=== PATIENT | male | born 1945 | race Caucasian/White ===

== ENCOUNTER 2019-12-13 13:04 | Inpatient (IN) ==
[2019-12-13] MEDS ORDERED: VECURONIUM 10 MG VIAL IV ONE (13:20)
[2019-12-13] MEDS ORDERED: SODIUM CHLORIDE 0.9% 1,000 ML IV STA (13:40)
[2019-12-13] MEDS ORDERED: NOREPINEPHRINE 4 MG/4 ML VIAL IV ONE (13:46)
[2019-12-13 13:50] LABS: Basophils % 0.4 % (0.0-0.8); Eosinophils # 0.2 10*3/uL (0.0-0.87); Eosinophils % 2.1 % (0.00-10.9); Hematocrit 36.3 VOL% (42.0-52.0); Hemoglobin 11.3 GM/DL (14.0-18.0); Immature Granulocytes % 4.1 %; Immature Granulocytes Absolute 0.43 #; Lymphocytes # 4.1 10*3/uL (1.4-4.0); Lymphocytes % 39.1 % (21.2-54.2); Mean Corpuscular HGB Conc 31.1 GM/DL (32-36); Mean Corpuscular Volume 97.3 FL (87-102); Mean Platelet Volume 10.2 FL (9.6-12.0); Monocytes % 9.2 % (1.7-12.7); NRBC # 0.02 10*3/uL; Neutrophils % 45.1 % (38.7-73.9); Platelet Count 380 T/CUMM (130-400); Red Blood Count 3.73 MC/CUMM (3.8-5.5); Red Cell Distribution Width 14.3 % (9.3-17.3); White Blood Count 10.5 T/CUMM (4-12)
[2019-12-13] MEDS ORDERED: ATROPINE 1 MG/10 ML SYRINGE IV STA (13:55)
[2019-12-13] MEDS ORDERED: ATROPINE 1 MG/10 ML SYRINGE ONE (13:56)
[2019-12-13 14:06] LABS: Alanine Aminotransferase 25 U/L (16-61); Alkaline Phosphatase 69 U/L (45-117); Aspartate Amino Transferase 26 U/L (0-37); Bilirubin,Total < 0.39 MG/DL (0.2-1.0); Blood Urea Nitrogen 20 MG/DL (7-18); Calcium 8.6 MG/DL (8.5-10.1); Estimated Glom Filtration Rate 117 ML/MIN; Glucose 148 MG/DL (74-106); Osmolality,Calculated 269.5 MOS/KG (273-304); Total Protein 6.9 G/DL (6.4-8.3)
[2019-12-13] MEDS ORDERED: PIPERACILLIN/TAZOBACTAM 3,375 MG VIAL IV ONE (14:26)
[2019-12-13] MEDS ORDERED: SODIUM CHLORIDE 0.9% 100 ML IV ONE (14:27)
[2019-12-13] MEDS ORDERED: PIPERACILLIN/TAZOBACTAM 3,375 MG in SODIUM CHLORIDE 0.9% 100 ML IV STA (14:29)
[2019-12-13 14:35] LABS: ABG Base Excess -1.5 MMOL/L (-2.5-2.5); ABG HCO3 23.2 MMOL/L (20-26); ABG PH 7.238 (7.35-7.45); ABG TCO2 25.1 MMOL/L (23-27); Allen Test Positive; Pt O2 Delivery Device Ventilator
[2019-12-13] MEDS: NOREPINEPHRINE 8 MG in SODIUM CHLORIDE 0.9% 242 ML IV PRN ×3 (14:55→22:08)
[2019-12-13] MEDS ORDERED: MORPHINE 4 MG/1 ML VIAL IV PRN ×2 (15:23→17:37)
[2019-12-13] MEDS ORDERED: ENOXAPARIN 40 MG/0.4 ML SYRINGE SUBCUT SCH (15:23)
[2019-12-13] MEDS ORDERED: ONDANSETRON 4 MG/2 ML VIAL IV PRN (15:23)
[2019-12-13] MEDS ORDERED: MORPHINE 10 MG/1 ML VIAL IV ONE (15:54)
[2019-12-13] MEDS ORDERED: SODIUM CHLORIDE 0.9% 1,000 ML IV ONE ×2 (15:57→21:40)
[2019-12-13] MEDS ORDERED: ATROPINE 1 MG/10 ML SYRINGE IV ONE (16:07)
[2019-12-13 17:05] LABS: ABG Base Excess -5.7 MMOL/L (-2.5-2.5); ABG HCO3 19.6 MMOL/L (20-26); ABG Oxygen Saturation 86.1 % (95-100); ABG PCO2 66.8 MM HG (35-48); ABG PO2 65.3 MM HG (80-95); ABG TCO2 22.7 MMOL/L (23-27); Allen Test Positive; Pt O2 Delivery Device Ventilator
[2019-12-13 17:08] LABS: ABG PH 7.168 (7.35-7.45)
[2019-12-13] MEDS: SODIUM CHLORIDE 0.9% 1,000 ML IV SCH (17:30)
[2019-12-13] MEDS: MEROPENEM 500 MG in SODIUM CHLORIDE 0.9% 100 ML IV SCH (18:15)
[2019-12-13] MEDS: VALPROIC ACID INJ 750 MG in SODIUM CHLORIDE 0.9% 100 ML IV SCH (18:21)
[2019-12-14] MEDS: MEROPENEM 500 MG in SODIUM CHLORIDE 0.9% 100 ML IV SCH ×4 (00:39→16:46)
[2019-12-14] MEDS: VALPROIC ACID INJ 750 MG in SODIUM CHLORIDE 0.9% 100 ML IV SCH ×3 (01:28→16:45)
[2019-12-14] MEDS: SODIUM CHLORIDE 0.9% 1,000 ML IV SCH ×3 (01:41→16:44)
[2019-12-14 02:48] LABS: Basophils % 0.1 % (0.0-0.8); Hematocrit 30.5 VOL% (42.0-52.0); Hemoglobin 9.7 GM/DL (14.0-18.0); Immature Granulocytes % 0.7 %; Immature Granulocytes Absolute 0.06 #; Lymphocytes % 11.3 % (21.2-54.2); Mean Corpuscular HGB Conc 31.8 GM/DL (32-36); Mean Corpuscular Volume 94.4 FL (87-102); Mean Platelet Volume 10.1 FL (9.6-12.0); Monocytes % 12.8 % (1.7-12.7); NRBC # 0.03 10*3/uL; Neutrophils % 75.1 % (38.7-73.9); Platelet Count 308 T/CUMM (130-400); Red Blood Count 3.23 MC/CUMM (3.8-5.5); Red Cell Distribution Width 14.5 % (9.3-17.3); White Blood Count 8.5 T/CUMM (4-12)
[2019-12-14 03:08] LABS: Calcium 7.7 MG/DL (8.5-10.1)
[2019-12-14 04:08] LABS: ABG Base Excess -2.2 MMOL/L (-2.5-2.5); ABG HCO3 22.6 MMOL/L (20-26); ABG Oxygen Saturation 99.6 % (95-100); ABG PCO2 33.1 MM HG (35-48); ABG PH 7.422 (7.35-7.45); ABG TCO2 19.7 MMOL/L (23-27); Allen Test Positive; Pt O2 Delivery Device Ventilator
[2019-12-14] MEDS ORDERED: LEVOFLOXACIN INJ 750 MG in PREMIX 1 EACH IV SCH (09:00)
[2019-12-14] MEDS: LEVOFLOXACIN INJ 750 MG in PREMIX 1 EACH IV SCH (09:04)
[2019-12-14] MEDS: NOREPINEPHRINE 8 MG in SODIUM CHLORIDE 0.9% 242 ML IV PRN (09:13)
[2019-12-14] MEDS ORDERED: MAGNESIUM SULF RIDER 2 GM in PREMIX 1 EACH IV ONE (10:38)
[2019-12-14 13:18] LABS: Apearance,Urine Slightly Hazy (Clear); Bilirubin,Urine Negative (Negative); Blood, Urine Moderate mg/dL (Negative); Glucose,Urine (UA) Negative (Negative); Hyaline Casts,Urine 1 /LPF (0-3); Ketones,Urine Negative (Negative); Mucus,Urine Occasional /LPF (Occasional); Nitrite,Urine Negative (Negative); Protein,Urine Negative; RBC,Urine 37 /HPF (0-4); Squamous Epithelial Cell,Urine Occasional /HPF (0-10); Urine Color Yellow (Yellow); Urine Specific Gravity 1.018 (1.001-1.035); WBC,Urine 48 /HPF (0-6)
[2019-12-15] MEDS: VALPROIC ACID INJ 750 MG in SODIUM CHLORIDE 0.9% 100 ML IV SCH ×4 (00:32→23:14)
[2019-12-15] MEDS: MEROPENEM 500 MG in SODIUM CHLORIDE 0.9% 100 ML IV SCH ×5 (00:32→23:14)
[2019-12-15 03:14] LABS: ABG Base Excess 0.7 MMOL/L (-2.5-2.5); ABG Oxygen Saturation 99.4 % (95-100); ABG PCO2 33.7 MM HG (35-48); ABG PH 7.463 (7.35-7.45); ABG TCO2 22.5 MMOL/L (23-27); Allen Test Positive; Pt O2 Delivery Device Ventilator
[2019-12-15 05:17] LABS: Calcium 7.7 MG/DL (8.5-10.1); Osmolality,Calculated 278.7 MOS/KG (273-304)
[2019-12-15] MEDS: SODIUM CHLORIDE 0.9% 1,000 ML IV SCH ×3 (07:20→17:04)
[2019-12-15 08:26] LABS: Eosinophils % 0.3 % (0.00-10.9); Hematocrit 26.7 VOL% (42.0-52.0); Hemoglobin 8.2 GM/DL (14.0-18.0); Immature Granulocytes % 0.6 %; Immature Granulocytes Absolute 0.04 #; Lymphocytes # 1.5 10*3/uL (1.4-4.0); Lymphocytes % 20.4 % (21.2-54.2); Mean Corpuscular HGB Conc 30.7 GM/DL (32-36); Mean Corpuscular Volume 97.1 FL (87-102); Monocytes % 9.1 % (1.7-12.7); Neutrophils % 69.6 % (38.7-73.9); Red Blood Count 2.75 MC/CUMM (3.8-5.5); Red Cell Distribution Width 15.2 % (9.3-17.3); White Blood Count 7.1 T/CUMM (4-12)
[2019-12-15 08:33] LABS: Platelet Count 176 T/CUMM (130-400)
[2019-12-15] MEDS: LEVOFLOXACIN INJ 750 MG in PREMIX 1 EACH IV SCH (09:40)
[2019-12-15] MEDS ORDERED: GLUCAGON 1 MG VIAL IM PRN (13:13)
[2019-12-15] MEDS ORDERED: DEXTROSE 10% 250 ML BAG IV PRN (13:13)
[2019-12-15 16:29] LABS: Allen Test Positive; Pt O2 Delivery Device Ventilator
[2019-12-15 16:30] LABS: ABG HCO3 24.4 MMOL/L (20-26); ABG Oxygen Saturation 96.1 % (95-100); ABG PH 7.433 (7.35-7.45); ABG PO2 76.6 MM HG (80-95); ABG TCO2 22.5 MMOL/L (23-27)
[2019-12-16 03:24] LABS: ABG Base Excess 0.2 MMOL/L (-2.5-2.5); ABG HCO3 24.6 MMOL/L (20-26); ABG Oxygen Saturation 99.2 % (95-100); ABG PCO2 36.6 MM HG (35-48); ABG TCO2 22.8 MMOL/L (23-27); Allen Test Positive; Pt O2 Delivery Device Ventilator
[2019-12-16] MEDS: MEROPENEM 500 MG in SODIUM CHLORIDE 0.9% 100 ML IV SCH ×4 (04:33→23:57)
[2019-12-16 06:14] LABS: Calcium 7.9 MG/DL (8.5-10.1); Osmolality,Calculated 281.4 MOS/KG (273-304)
[2019-12-16 06:35] LABS: Basophils % 0.2 % (0.0-0.8); Eosinophils # 0.1 10*3/uL (0.0-0.87); Eosinophils % 1.1 % (0.00-10.9); Hematocrit 24.1 VOL% (42.0-52.0); Immature Granulocytes % 0.5 %; Immature Granulocytes Absolute 0.03 #; Lymphocytes # 1.4 10*3/uL (1.4-4.0); Mean Corpuscular HGB Conc 30.7 GM/DL (32-36); Mean Corpuscular Volume 97.6 FL (87-102); Mean Platelet Volume 10.6 FL (9.6-12.0); Neutrophils % 64.2 % (38.7-73.9); Platelet Count 141 T/CUMM (130-400); Red Blood Count 2.47 MC/CUMM (3.8-5.5); Red Cell Distribution Width 15.2 % (9.3-17.3); White Blood Count 5.7 T/CUMM (4-12)
[2019-12-16 06:37] LABS: Hemoglobin 7.4 GM/DL (14.0-18.0)
[2019-12-16] MEDS: SODIUM CHLORIDE 0.9% 1,000 ML IV SCH ×2 (08:00→23:57)
[2019-12-16] MEDS: VALPROIC ACID INJ 750 MG in SODIUM CHLORIDE 0.9% 100 ML IV SCH ×2 (08:07→16:23)
[2019-12-16] MEDS: LEVOFLOXACIN INJ 750 MG in PREMIX 1 EACH IV SCH (08:09)
[2019-12-16] MEDS: POTASSIUM CHLORIDE 20 MEQ/15 ML UDCUP PER TUBE SCH ×3 (10:09→17:21)
[2019-12-16] MEDS: VANCOMYCIN INJ 1,750 MG in SODIUM CHLORIDE 0.9% 500 ML IV SCH (10:16)
[2019-12-16] MEDS: ALBUTEROL 2.5 MG/3 ML NEB RESP TX PRN ×2 (11:41→16:42)
[2019-12-16] MEDS: fentaNYL INJ 1,250 MCG in SODIUM CHLORIDE 0.9% 225 ML IV PRN ×2 (12:57→20:51)
[2019-12-17] MEDS: VANCOMYCIN INJ 1,750 MG in SODIUM CHLORIDE 0.9% 500 ML IV SCH (00:30)
[2019-12-17] MEDS: VALPROIC ACID INJ 750 MG in SODIUM CHLORIDE 0.9% 100 ML IV SCH ×3 (01:27→16:06)
[2019-12-17] MEDS: fentaNYL INJ 1,250 MCG in SODIUM CHLORIDE 0.9% 225 ML IV PRN (01:27)
[2019-12-17] MEDS ORDERED: MIDAZOLAM 100 MG in SODIUM CHLORIDE 0.9% 80 ML IV PRN (03:09)
[2019-12-17 03:33] LABS: ABG HCO3 24.3 MMOL/L (20-26); ABG Oxygen Saturation 96.8 % (95-100); ABG PCO2 55.7 MM HG (35-48); ABG PH 7.257 (7.35-7.45); ABG PO2 100.4 MM HG (80-95); Allen Test Positive; Pt O2 Delivery Device Ventilator
[2019-12-17 04:18] LABS: Basophils % 0.3 % (0.0-0.8); Eosinophils # 0.1 10*3/uL (0.0-0.87); Hematocrit 27.8 VOL% (42.0-52.0); Hemoglobin 8.4 GM/DL (14.0-18.0); Immature Granulocytes % 1.5 %; Lymphocytes % 14.3 % (21.2-54.2); Mean Corpuscular HGB Conc 30.2 GM/DL (32-36); Mean Corpuscular Volume 98.9 FL (87-102); Mean Platelet Volume 10.2 FL (9.6-12.0); Monocytes % 9.7 % (1.7-12.7); Neutrophils % 73.2 % (38.7-73.9); Platelet Count 175 T/CUMM (130-400); Red Blood Count 2.81 MC/CUMM (3.8-5.5); Red Cell Distribution Width 14.8 % (9.3-17.3); White Blood Count 6.8 T/CUMM (4-12)
[2019-12-17 04:50] LABS: Calcium 8.2 MG/DL (8.5-10.1); Osmolality,Calculated 282.3 MOS/KG (273-304)
[2019-12-17] MEDS: MEROPENEM 500 MG in SODIUM CHLORIDE 0.9% 100 ML IV SCH (05:45)
[2019-12-17] MEDS: SODIUM CHLORIDE 0.9% 1,000 ML IV SCH (06:28)
[2019-12-17] MEDS: LEVOFLOXACIN INJ 750 MG in PREMIX 1 EACH IV SCH (08:39)
[2019-12-17] MEDS ORDERED: FUROSEMIDE 20 MG/2 ML VIAL IV ONE (10:01)
[2019-12-17] MEDS: methylPREDNISolone SOD SUC 40 MG/1 ML VIAL IV SCH ×2 (10:24→16:09)
[2019-12-17] MEDS: metroNIDAZOLE INJ 500 MG in PREMIX 1 EACH IV SCH ×3 (10:24→21:21)
[2019-12-17] MEDS: cefTRIAXone 1,000 MG in SYRINGE 1 EACH IV SCH (10:27)
[2019-12-17] MEDS: LACTULOSE 20 GM/30 ML UDCUP PER TUBE SCH ×3 (10:28→21:21)
[2019-12-17] MEDS: DEXMEDETOMIDINE 200 MCG in SODIUM CHLORIDE 0.9% 48 ML IV PRN ×2 (11:53→19:14)
[2019-12-17] MEDS ORDERED: SODIUM PHOSPHATE ENEMA 133 ML BOTTLE RECTAL ONE (15:34)
[2019-12-17] MEDS ORDERED: MAGNESIUM CITRATE 300 ML BOTTLE PO ONE (15:34)
[2019-12-17] MEDS: FUROSEMIDE 20 MG/2 ML VIAL IV SCH (16:06)
[2019-12-17] MEDS: INSULIN REGULAR 100 UNIT/ML SUBCUT SCH (17:31)
[2019-12-17] MEDS: ALBUTEROL/IPRATROPIUM 3 ML NEB RESP TX SCH ×2 (19:54→23:50)
[2019-12-17] MEDS: RANITIDINE 150 MG TABLET PO SCH (21:21)
[2019-12-18] MEDS: INSULIN REGULAR 100 UNIT/ML SUBCUT SCH ×4 (00:36→17:14)
[2019-12-18] MEDS: FUROSEMIDE 20 MG/2 ML VIAL IV SCH ×3 (00:36→15:46)
[2019-12-18] MEDS: methylPREDNISolone SOD SUC 40 MG/1 ML VIAL IV SCH ×3 (00:36→17:15)
[2019-12-18] MEDS: DEXMEDETOMIDINE 200 MCG in SODIUM CHLORIDE 0.9% 48 ML IV PRN ×3 (00:56→18:13)
[2019-12-18] MEDS: ALBUTEROL/IPRATROPIUM 3 ML NEB RESP TX SCH ×6 (03:35→23:15)
[2019-12-18 04:06] LABS: ABG Base Excess 0.8 MMOL/L (-2.5-2.5); ABG HCO3 24.6 MMOL/L (20-26); ABG Oxygen Saturation 97.2 % (95-100); ABG PCO2 35.7 MM HG (35-48); ABG PH 7.456 (7.35-7.45); ABG TCO2 25.7 MMOL/L (23-27); Allen Test Positive; Pt O2 Delivery Device Ventilator
[2019-12-18] MEDS: metroNIDAZOLE INJ 500 MG in PREMIX 1 EACH IV SCH ×4 (04:48→21:02)
[2019-12-18 05:05] LABS: Calcium 8.3 MG/DL (8.5-10.1); Osmolality,Calculated 283.7 MOS/KG (273-304)
[2019-12-18 05:07] LABS: Hemoglobin 8.2 GM/DL (14.0-18.0); Immature Granulocytes Absolute 0.11 #; Lymphocytes # 0.8 10*3/uL (1.4-4.0); Lymphocytes % 14.5 % (21.2-54.2); Mean Corpuscular HGB Conc 31.5 GM/DL (32-36); Mean Corpuscular Volume 94.5 FL (87-102); Mean Platelet Volume 10.4 FL (9.6-12.0); Monocytes % 6.8 % (1.7-12.7); Neutrophils % 76.7 % (38.7-73.9); Platelet Count 180 T/CUMM (130-400); Red Blood Count 2.75 MC/CUMM (3.8-5.5); Red Cell Distribution Width 14.1 % (9.3-17.3); White Blood Count 5.6 T/CUMM (4-12)
[2019-12-18 05:08] LABS: Prealbumin 19.5 MG/DL (20-40)
[2019-12-18] MEDS: hydrALAZINE 20 MG/1 ML VIAL IV PRN ×2 (06:07→18:54)
[2019-12-18] MEDS: cefTRIAXone 1,000 MG in SYRINGE 1 EACH IV SCH (09:10)
[2019-12-18] MEDS: LACTULOSE 20 GM/30 ML UDCUP PER TUBE SCH ×3 (09:10→21:02)
[2019-12-18] MEDS: RANITIDINE 150 MG TABLET PO SCH ×2 (09:10→21:02)
[2019-12-18] MEDS: risperiDONE 1 MG TABLET PER TUBE SCH ×2 (10:41→21:02)
[2019-12-18] MEDS: ENOXAPARIN 40 MG/0.4 ML SYRINGE SUBCUT SCH (10:41)
[2019-12-18] MEDS: LOSARTAN 50 MG TABLET PO SCH (15:45)
[2019-12-19] MEDS: FUROSEMIDE 20 MG/2 ML VIAL IV SCH ×2 (00:39→09:30)
[2019-12-19] MEDS: INSULIN REGULAR 100 UNIT/ML SUBCUT SCH ×4 (00:40→17:59)
[2019-12-19] MEDS: methylPREDNISolone SOD SUC 40 MG/1 ML VIAL IV SCH ×3 (00:40→16:24)
[2019-12-19] MEDS: DEXMEDETOMIDINE 200 MCG in SODIUM CHLORIDE 0.9% 48 ML IV PRN (00:46)
[2019-12-19] MEDS: ALBUTEROL/IPRATROPIUM 3 ML NEB RESP TX SCH ×4 (02:20→14:19)
[2019-12-19] MEDS: metroNIDAZOLE INJ 500 MG in PREMIX 1 EACH IV SCH ×3 (04:11→15:12)
[2019-12-19 05:25] LABS: ABG Base Excess 4.3 MMOL/L (-2.5-2.5); ABG HCO3 28.3 MMOL/L (20-26); ABG Oxygen Saturation 98.8 % (95-100); ABG PCO2 40.1 MM HG (35-48); ABG PH 7.458 (7.35-7.45); ABG TCO2 25.9 MMOL/L (23-27); Allen Test Positive; Pt O2 Delivery Device Ventilator
[2019-12-19] MEDS: LOSARTAN 50 MG TABLET PO SCH (09:29)
[2019-12-19] MEDS: RANITIDINE 150 MG TABLET PO SCH (09:29)
[2019-12-19] MEDS: risperiDONE 1 MG TABLET PER TUBE SCH (09:29)
[2019-12-19] MEDS: ENOXAPARIN 40 MG/0.4 ML SYRINGE SUBCUT SCH (09:29)
[2019-12-19] MEDS ORDERED: LACTULOSE 20 GM/30 ML UDCUP PER TUBE PRN (09:30)
[2019-12-19] MEDS: cefTRIAXone 1,000 MG in SYRINGE 1 EACH IV SCH (09:36)
[2019-12-19] MEDS ORDERED: FUROSEMIDE 20 MG/2 ML VIAL IV SCH (10:00)
[2019-12-19] MEDS: LACTULOSE 20 GM/30 ML UDCUP PER TUBE SCH (11:14)
[2019-12-19 18:30] VITALS: BP 168/85
== END 2019-12-19 18:25 | DRG 207 ==
LOC: EDBD → EDSEX → EDUNIT# → N.ED 13:04 → SUATTDRO 14:41 → SUPCPDRO 14:41 → N.EDINP 14:41 → N.CC 15:29
PROVIDERS: ADMIT Internal Medicine; ATTEND Internal Medicine